=== PATIENT | male | born 1965 | race Caucasian/White ===

== ENCOUNTER 2021-03-17 13:15 | Emergency (ER) | payer MEDICARE ==
[~2021-03-17] VITALS: Ht 170.2 cm; Wt 95.5 kg
[~2021-03-17 13:15] MED LIST: ASPI81TA45 PO; B CO1CAP5 PO; BACL-19 PO; DULO20CA45 PO; EMPA25TA PO; GABA800T5 PO; HYDROCHLOROTH12.5 MG PO; IBUP-1223 PO; LISI40TA9 PO; MELA3TAB31 PO; METF1000 PO; MULT-826 PO; PREG100C PO; RANITIDINE PO; ROPI0.5T4 PO; VIT1CAPS9 PO
[2021-03-17] MEDS ORDERED: SODIUM CHLORIDE 0.9% 1,000ML IVBOLUS ONE (14:00)
[2021-03-17] MEDS ORDERED: VANCOMYCIN PER PHARMACY MC ONE (14:00)
[2021-03-17] MEDS ORDERED: AMPICILLIN/SULBACTAM 3 GM in SODIUM CHLORIDE 0.9% 100 ML IV ONE (14:00)
--- NOTE | 2021-03-17 14:25 | NUR ---
Pt states he noted wound approx 3 weeks ago. Pt reports being seen 3 days ago by PCP but not prescribed abx. Reports A1c at 6.5. Connected to BP and O2 monitors.
[2021-03-17 14:28] LABS: BASOPHILS % (AUTO) 1 % (0-1); EOSINOPHILS % (AUTO) 2 % (1-7); LYMPHOCYTES % (AUTO) 26 % (22-44); MEAN CORPUSCULAR HEMOGLOBIN 19.3 pg (27.5-34.5); MEAN CORPUSCULAR HGB CONC 32.2 g/dL (33.2-36.2); MEAN PLATELET VOLUME 9.5 fL (7.4-10.4); MONOCYTES % (AUTO) 8 % (2-9); NEUTROPHILS % (AUTO) 63 % (42-75); PLATELET COUNT 230 x10^3/uL (130-400); RED BLOOD COUNT 6.76 x10^6/uL (4.38-5.82)
[2021-03-17 14:29] LABS: ANION GAP 8 mmol/L (5-15); CHLORIDE 104 mmol/L (98-107)
[2021-03-17 14:30] LABS: CREATININE 1.51 mg/dL (0.7-1.3)
[2021-03-17] MEDS ORDERED: VANCOMYCIN 2,400 MG in SODIUM CHLORIDE 0.9% 500 ML IV ONE (14:30)
[2021-03-17] MEDS ORDERED: HYDROcodone/APAP 10/325 MG TABLET PO ONE (15:00)
[2021-03-17 15:05] LABS: ANISOCYTOSIS 1+; ECHINOCYTES 1+; HYPOCHROMIA 1+; MICROCYTOSIS 2+; OVALOCYTES 2+; POLYCHROMASIA 1+
[2021-03-17 15:06] LABS: <PLATELET ESTIMATE> ADEQUATE; SCHISTOCYTES 1+
[2021-03-17 15:07] LABS: <PLT MORPHOLOGY> NORMAL PLT MORPH
[2021-03-17] MEDS ORDERED: HYDROcodone/APAP 10/325 MG TABLET ONE (15:09)
[2021-03-17 17:27] VITALS: BP 112/57
[2021-03-17] MEDS ORDERED: BACITRACIN ZINC OINT 500U/GM, 0.9 GM ONE (17:31)
[2021-03-17] MEDS ORDERED: NEOSPORIN OINT. PKT 1 PACKET ONE (17:32)
== END 2021-03-17 17:30 | disposition home or self-care (01) ==
LOC: ED 15:07
DX: L03.031 Cellulitis of right toe (principal); L03.125 Acute lymphangitis of right lower limb; E11.9 Type 2 diabetes mellitus without complications; I10 Essential (primary) hypertension
CPT/HCPCS: 36415; 73630; 80048; 82040; 83605; 85025; 87040; 96365; 96366; 96367; 99285; J0295; J3370; J7030; J7040

== ENCOUNTER 2021-05-02 22:14 | Emergency (ER) | payer MEDICARE ==
[~2021-05-02] VITALS: Ht 170.2 cm; Wt 90.9 kg
[2021-05-02 22:31] VITALS: BP 113/61
--- NOTE | 2021-05-02 23:10 | NUR ---
pt to room from lobby
--- NOTE | 2021-05-02 23:13 | NUR ---
TOOK TWO LINE DRIVES ON HIS LEFT LEG PLAYING SOFTBALL, LEFT ANKLE AND GILBERT INJURY
[2021-05-02] MEDS ORDERED: KETOROLAC 60 MG/2 ML ONE (23:50)
[2021-05-03] MEDS ORDERED: KETOROLAC 30 MG/1 ML IM ONE
--- NOTE | 2021-05-03 00:39 | NUR ---
PT REQUESTED CRUTCHES PRIOR TO DISCHARGE SO HE CAN AMBULATE, THIS RN PROVIDED CRUTCHES TO PT AND TAUGHT PT HOW TO PROPERLY USE THEM, SCRIPTS GIVEN, PT AMBULATED WITH THE CRUTCHES APPROPRIATELY UPON DISCHARGE
== END 2021-05-03 00:42 | disposition home or self-care (01) ==
LOC: ED 23:59
DX: S80.12XA Contusion of left lower leg, initial encounter (principal); S90.02XA Contusion of left ankle, initial encounter; I10 Essential (primary) hypertension; E11.9 Type 2 diabetes mellitus without complications; W21.07XA Struck by softball, initial encounter; Y93.64 Activity, baseball; Y92.328 Other athletic field as the place of occurrence of the external cause; Y99.8 Other external cause status
CPT/HCPCS: 73590; 73610; 96372; 99284; J1885